=== PATIENT | female | born 1975 | race Caucasian/White ===

== ENCOUNTER 2020-02-27 13:19 | Inpatient (IN) | payer BC ==
--- NOTE | 2020-02-27 15:00 | EDM.PDOC ---
ED HPI GENERAL MEDICAL PROBLEM - General Chief Complaint: General Stated Complaint: FROM CLINIC RAPID HEART RATE Time Seen by Provider: 02/27/20 14:33 Source of Information: Reports: Patient, Provider, RN Notes Reviewed History Limitations: Reports: No Limitations - History of Present Illness INITIAL COMMENTS - FREE TEXT/NARRATIVE: 44-year-old female presents emergency department today complaint of shortness of breath, she initially presented to the urgent care clinic was evaluated there complaints of shortness of breath and any amount of dizziness that she walks she gets winded weiss included chest x-ray EKG electrolytes and CBC the most remarkable aspect is a hemoglobin of 6.4 that is microcytic EKG demonstrates a tachycardia - Related Data Allergies Allergy/AdvReac Type Severity Reaction Status Date / Time No Known Allergies Allergy Verified 02/27/20 13:58 Home Meds: Home Meds Albuterol [Proventil Neb Soln] 2.5 mg .XX DAILY 02/27/20 [History] Fluticasone/Vilanterol [Breo Ellipta 100-25 MCG Inhalation Kit] 1 each IH DAILY 02/27/20 [History] Montelukast [Singulair] 10 mg PO DAILY 02/27/20 [History] PARoxetine HCl [Paxil] 20 mg PO BEDTIME 02/27/20 [History] hydrOXYzine HCL [Atarax] 12.5 - 25 mg PO QID 02/27/20 [History] hydroCHLOROthiazide [Hydrochlorothiazide] 12.5 mg PO DAILY 02/27/20 [History] Past Medical History HEENT History: Reports: Impaired Vision Other HEENT History: wears glasses Respiratory History: Reports: Asthma, Bronchitis, Recurrent Gastrointestinal History: Reports: GI Bleed Genitourinary History: Reports: Renal Calculus [employer] History: Reports: Musculoskeletal History: Reports: Fracture Psychiatric History: Reports: Depression - Infectious Disease History Infectious Disease History: Reports: Chicken Pox, Novel Coronavirus - Past Surgical History HEENT Surgical History: Reports: None Respiratory Surgical History: Reports: None GI Surgical History: Reports: Colonoscopy (2019) Female Surgical History: Reports: Section Musculoskeletal Surgical History: Reports: None Dermatological Surgical History: Reports: None Social & Family History - Tobacco Use Tobacco Use Status *Q: Former Tobacco User Years of Tobacco use: 30 Used Tobacco, but Quit: Yes Month/Year Tobacco Last Used: 2018 - Caffeine Use Caffeine Use: Reports: Coffee - Alcohol Use Days Per Week of Alcohol Use: 7 Number of Drinks Per Day: 2 Total Drinks Per Week: 14 - Recreational Drug Use Recreational Drug Use: No ED ROS GENERAL - Review of Systems Review Of Systems: See Below Constitutional: Reports: No Symptoms HEENT: Reports: No Symptoms Respiratory: Reports: Shortness of Breath Cardiovascular: Reports: Dyspnea on Exertion GI/Abdominal: Reports: No Symptoms : Reports: No Symptoms Musculoskeletal: Reports: No Symptoms ED EXAM, GENERAL - Physical Exam Exam: See Below Exam Limited By: No Limitations General Appearance: Alert, WD/WN, No Apparent Distress Respiratory/Chest: No Respiratory Distress, Lungs Clear, Normal Breath Sounds, No Accessory Muscle Use, Chest Non-Tender Cardiovascular: Regular Rate, Rhythm Course - Vital Signs Last Recorded V/S: Last Vital Signs Temp 97.4 F 02/27/20 16:05 Pulse 121 H 02/27/20 16:05 Resp 15 02/27/20 16:05 BP 168/96 H 02/27/20 16:05 Pulse Ox 100 02/27/20 15:55 - Orders/Labs/Meds Orders: Active Orders 24 hr Category Date Time Status Patient Status Manage Transfer [TRANSFER] Routine ADT 02/27/20 15:22 Active Transfuse Red Blood Cells [COMM] Stat Oth 02/27/20 14:37 Ordered Resuscitation Status Routine Resus Stat 02/27/20 15:24 Ordered Labs: Laboratory Tests 02/27/20 02/27/20 02/27/20 Range/Units 14:50 14:50 14:50 Percent Retic 3.8 H (0.5-1.5) % Iron (50-170) ug/dL TIBC (250-450) ug/dl % Saturation (20-55) % Ferritin 11 (8-388) ng/ml Lactate Dehydrogenase 248 H (82-234) U/L Vitamin B12 285 (193-986) pg/ml Folate 18.7 (8.6-58.9) ng/ml Blood Type O NEGATIVE Gel Antibody Screen Negative Crossmatch See Detail 02/27/20 Range/Units 14:50 Percent Retic (0.5-1.5) % Iron 219 H (50-170) ug/dL TIBC 540 H (250-450) ug/dl % Saturation 41 (20-55) % Ferritin (8-388) ng/ml Lactate Dehydrogenase (82-234) U/L Vitamin B12 (193-986) pg/ml Folate (8.6-58.9) ng/ml Blood Type Gel Antibody Screen Crossmatch Departure - Departure Time of Disposition: 16:13 Disposition: Admitted As Inpatient 67 Condition: Fair Clinical Impression: Microcytic anemia - Discharge Information Referrals: PCP,None [Primary Care Provider] - Forms: ED Department Discharge Sepsis Event Note (ED) - Evaluation Sepsis Screening Result: No Definite Risk - Focused Exam Vital Signs: Vital Signs Temp Temp Pulse Resp BP Pulse Ox 02/27/20 16:05 97.4 F 121 H 15 168/96 H 02/27/20 15:55 98.1 F 124 H 21 H 160/90 H 100 02/27/20 15:51 98.1 F 120 H 15 160/90 H 02/27/20 13:50 133 H 20 129/77 98 - My Orders Last 24 Hours: My Active Orders 02/27/20 14:37 Transfuse Red Blood Cells [COMM] Stat - Assessment/Plan Last 24 Hours: My Active Orders 02/27/20 14:37 Transfuse Red Blood Cells [COMM] Stat Plan: Assessment Acuity = acute Site and laterality = microcytic anemia Etiology = unknown Manifestations = dyspnea Location of injury = Home Lab values = reticulocyte count elevated 3.8 iron elevated to 19 and total iron binding capacity elevated 540 Plan Call discussed case with hospitalist on-call at 1545 kindly agreed to come evaluate patient emergency department for admission blood transfusion has been initiated in the emergency department This note was dictated using [employer] [place] voice recognition software please call with any questions on syntax or grammar.
--- NOTE | 2020-02-27 15:31 | PCM.HP.2 ---
H&P History of Present Illness - General Date of Service: 02/27/20 Admit Problem/Dx: Admission Diagnosis/Problem Admission Diagnosis/Problem Anemia Source of Information: Patient, Provider, RN Notes Reviewed History Limitations: Reports: No Limitations - History of Present Illness Initial Comments - Free Text/Narative: Ms. Cary is a 44-year-old woman who was admitted through the emergency department with weakness and shortness of breath secondary to severe microcytic anemia. Because of her shortness of breath and weakness she had presented to the clinic earlier today. Laboratory studies showed a hemoglobin of 6.4 with microcytic indices. She denies any recent history of overt bleeding, specifically no hematemesis, melena, hematochezia, or hematuria. Last summer she had been experiencing some abdominal pain and did undergo colonoscopy that per her report was unremarkable. She does have a longstanding history of very heavy menstrual bleeding, this has not changed significantly over the past several months. She denies previous history of significant anemia and last available hemoglobin was in the range of 11 with normal indices. - Related Data Allergies/Adverse Reactions: Allergies Allergy/AdvReac Type Severity Reaction Status Date / Time No Known Allergies Allergy Verified 02/27/20 13:58 Home Medications: Home Meds Albuterol [Proventil Neb Soln] 2.5 mg .XX DAILY 02/27/20 [History] Breo Ellipta 200-25 1 inhalation INH DAILY 02/27/20 [History] Montelukast [Singulair] 10 mg PO DAILY 02/27/20 [History] PARoxetine HCl [Paxil] 20 mg PO BEDTIME 02/27/20 [History] hydrOXYzine HCL [Atarax] 12.5 - 25 mg PO QID 02/27/20 [History] hydroCHLOROthiazide [Hydrochlorothiazide] 12.5 mg PO DAILY 02/27/20 [History] Past Medical History HEENT History: Reports: Impaired Vision Other HEENT History: wears glasses Respiratory History: Reports: Asthma, Bronchitis, Recurrent Gastrointestinal History: Reports: GI Bleed Genitourinary History: Reports: Renal Calculus [employer] History: Reports: Musculoskeletal History: Reports: Fracture Psychiatric History: Reports: Depression - Infectious Disease History Infectious Disease History: Reports: Chicken Pox, Novel Coronavirus - Past Surgical History HEENT Surgical History: Reports: None Respiratory Surgical History: Reports: None GI Surgical History: Reports: Colonoscopy (2020) Female Surgical History: Reports: Section Musculoskeletal Surgical History: Reports: None Dermatological Surgical History: Reports: None Social & Family History - Tobacco Use Tobacco Use Status *Q: Former Tobacco User Years of Tobacco use: 30 Used Tobacco, but Quit: Yes Month/Year Tobacco Last Used: 2019 - Caffeine Use Caffeine Use: Reports: Coffee - Alcohol Use Days Per Week of Alcohol Use: 7 Number of Drinks Per Day: 2 Total Drinks Per Week: 14 - Recreational Drug Use Recreational Drug Use: No H&P Review of Systems - Review of Systems: Review Of Systems: See Below General: Reports: Malaise, Weakness, Fatigue. Denies: Fever, Chills HEENT: Reports: No Symptoms Pulmonary: Reports: Shortness of Breath. Denies: Wheezing, Pleuritic Chest Pain, Cough, Sputum, Hemoptysis Cardiovascular: Reports: Dyspnea on Exertion, Lightheadedness. Denies: Chest Pain, Palpitations, Orthopnea, PND, Edema Gastrointestinal: Reports: No Symptoms Genitourinary: Reports: No Symptoms Musculoskeletal: Reports: No Symptoms Skin: Reports: No Symptoms Psychiatric: Reports: No Symptoms Neurological: Reports: No Symptoms Hematologic/Lymphatic: Reports: No Symptoms Immunologic: Reports: No Symptoms Exam - Exam Exam: See Below - Vital Signs Vital Signs: Last Vital Signs Temp Pulse 133 H 02/27/20 13:50 Resp 20 02/27/20 13:50 BP 129/77 02/27/20 13:50 Pulse Ox 98 02/27/20 13:50 Weight: 231 lb - Exam General: Alert, Oriented, Cooperative, Mild Distress HEENT: Conjunctiva Clear, Hearing Intact, Mucosa Moist & [place], Normal Nasal Septum, Posterior Pharynx Clear, Pupils Equal Neck: Supple, Trachea Midline, +2 Carotid Pulse wo Bruit Lungs: Clear to Auscultation, Normal Respiratory Effort Cardiovascular: Regular Rate, Regular Rhythm, Normal S1, Normal S2 GI/Abdominal Exam: Soft, Non-Tender, No Organomegaly, No Distention Back Exam: Normal Inspection, Full Range of Motion Extremities: Non-Tender, No Pedal Edema Skin: Warm, Dry, Intact Neurological: Cranial Nerves Intact, Strength Equal Bilateral, Normal Speech, Normal Tone, Sensation Intact. No: Focal Deficit Neuro Extensive - Mental Status: Alert, Oriented x3, Normal Mood/Affect, Normal Cognition, Memory Intact - Patient Data Lab Results Last 24 hrs: Laboratory Results - last 24 hr 02/27/20 02/27/20 Range/Units 14:50 14:50 Percent Retic 3.8 H (0.5-1.5) % Iron 219 H (50-170) ug/dL TIBC 540 H (250-450) ug/dl % Saturation 41 (20-55) % Sepsis Event Note - Evaluation Sepsis Screening Result: No Definite Risk - Focused Exam Vital Signs: Vital Signs Pulse Resp BP Pulse Ox 02/27/20 13:50 133 H 20 129/77 98 *Q Meaningful Use (ADM) - VTE Risk Assess *Q Each Risk Factor Represents 1 Point: Age 41 - 59 years, Obesity ( BMI > 25 kg/m2) Total Score 1 Point Risk Factors: 2 Each Risk Factor Represents 2 Points: None Total Score 2 Point Risk Factors: 0 Each Risk Factor Represents 3 Points: None Total Score 3 Point Risk Factors: 0 Each Risk Factor Represents 5 Points: None Total Score 5 Point Risk Factors: 0 Venous Thromboembolism Risk Factor Score *Q: 2 Problem List Initiated/Reviewed/Updated: Yes Orders Last 24hrs: Active Orders 24 hr Category Date Time Status Patient Status Manage Transfer [TRANSFER] Routine ADT 02/27/20 15:22 Active FERRITIN [CHEM] Stat Lab 02/27/20 14:50 Received FOLIC ACID [CHEM] Stat Lab 02/27/20 14:50 Received LACTATE DEHYDROGENASE,LDH [CHEM] Stat Lab 02/27/20 14:50 Received RED BLOOD CELLS LP [BBK] Stat Lab 02/27/20 14:50 Received TYPE AND SCREEN [BBK] Stat Lab 02/27/20 14:50 Received VITAMIN B12 [CHEM] Stat Lab 02/27/20 14:50 Received Transfuse Red Blood Cells [COMM] Stat Oth 02/27/20 14:37 Ordered Resuscitation Status Routine Resus Stat 02/27/20 15:24 Ordered Assessment/Plan Comment:: ASSESSMENT AND PLAN ANEMIA-hemoglobin 7 months ago was 11 with no microcytic indices. Now very low at 6.4 with decrease in MCV. She denies any evidence or symptoms of overt bleeding. Reports normal colonoscopy last summer. She does have a history of heavy menstrual flow. Iron studies obtained in the emergency department are normal. No evidence of active bleeding at the present time -Transfuse 1 unit of red blood cells -Recheck hemoglobin later this evening and in a.m. -Will require outpatient colonoscopy and EGD ASTHMA-she has had difficulty with exacerbations over the past few months. Tested positive for Covid at the end of January. -Nebulized albuterol as needed -Continue outpatient medications MAINTENANCE ISSUES -DVT prophylaxis; SCUDs -GI prophylaxis; not indicated -Marie catheter; not indicated -Nutrition; regular diet -Nicotine dependence; not required CODE STATUS-FULL CODE ADMISSION STATUS-patient will be admitted to inpatient status, expect at least a 2 night hospital stay for evaluation and management of problems as outlined above. At the time of this admission I do not reasonably expected evaluation and management of this problem will require more than a 96 hour hospital stay. DISPOSITION-anticipate discharge to home after the hospital stay. - Mortality Measure Prognosis:: Good
[2020-02-27] MEDS ORDERED: Albuterol 0.083% 2.5 MG/3 ML Neb Soln NEB PRN (17:03)
[2020-02-27] MEDS ORDERED: Polyethylene Glycol 3350 Powder 17 GM Packet PO PRN (17:03)
[2020-02-27] MEDS ORDERED: Acetaminophen 325 MG Tab PO PRN (17:03)
[2020-02-27] MEDS ORDERED: Sodium Chloride 0.9% 10 ML Syringe FLUSH PRN (17:03)
[2020-02-27] MEDS ORDERED: Ondansetron 4 MG Tab.DIS PO PRN (17:03)
[2020-02-27] MEDS: hydrOXYzine HCl 25 MG Tab PO SCH ×2 (17:52→21:28)
[2020-02-27] MEDS ORDERED: PARoxetine 20 MG Tab PO SCH (21:00)
[2020-02-27] MEDS ORDERED: Montelukast 10 MG Tab PO SCH (21:00)
[2020-02-27] MEDS: Formoterol/Mometasone 200-5 MCG 8.8 GM Inhaler IH SCH (21:28)
[2020-02-28] MEDS ORDERED: HYDROmorphone 0.5 MG/0.5 ML Syringe IVPUSH PRN (02:35)
[2020-02-28] MEDS: hydrOXYzine HCl 25 MG Tab PO SCH ×2 (05:43→09:50)
[2020-02-28] MEDS ORDERED: Formoterol/Mometasone 200-5 MCG 8.8 GM Inhaler IH SCH (07:00)
[2020-02-28] MEDS: Formoterol/Mometasone 200-5 MCG 8.8 GM Inhaler IH SCH (07:04)
[2020-02-28] MEDS ORDERED: Hydrochlorothiazide 12.5 MG Cap PO SCH (09:00)
[2020-02-28] MEDS ORDERED: Sodium Chloride 0.9% 10 ML SDV FLUSH ONE (10:37)
[2020-02-28] MEDS ORDERED: Iopamidol 755 Mg/ML 100 ML Bottle IV SCH (10:45)
[2020-02-28] MEDS ORDERED: Sodium Chloride 0.9% 100 ML IV SCH (10:45)
--- NOTE | 2020-02-28 12:04 | CRLCT ---
INDICATION: Tachycardia and SOB parotid the rule out pulmonary embolism. TECHNIQUE: Volumetric helical scanning of the thorax was performed during infusion of 80 cc of Isovue 370 contrast material IV, timing optimized for pulmonary arterial opacification. Coronal and sagittal reconstructions were obtained. COMPARISON: Chest x-ray of 02/27/2020. FINDINGS: The images are of acceptable quality and demonstrate uniform vascular enhancement within the pulmonary arteries. No pulmonary arterial filling defect is identified. The heart size is normal. Pulmonary interstitial edema is demonstrated along with small patchy airspace infiltrates which are compatible with alveolar edema. Superimposed COVID-19 pneumonia is also a consideration. Small symmetrical pleural effusions are demonstrated. The pulmonary veins are engorged. No airway abnormality is evident. No mediastinal or hilar lymphadenopathy is demonstrated. Images of the upper abdomen are unremarkable except for at least mild hepatomegaly. IMPRESSION: 1. Negative for pulmonary embolism. 2. CHF with pulmonary interstitial and possible alveolar edema as well as small pleural effusions bilaterally. Superimposed COVID-19 pneumonia is a consideration. 3. At least mild hepatomegaly. Please note that all CT scans at this facility use dose modulation, iterative reconstruction, and/or weight-based dosing when appropriate to reduce radiation dose to as low as reasonably achievable. Dictated by Sage Butler MD @ Feb 28 2020 11:56AM Signed by Dr. Sage Butler @ Feb 28 2020 12:03PM
--- NOTE | 2020-02-28 12:18 | PCM.DCSUM1 ---
Discharge Summary - Hospital Course Brief History: 44-year-old female with history of mild remittent asthma who presented with progressive dyspnea on exertion and weakness. She was admitted for management of anemia with a hemoglobin of less than 7. Diagnosis: Stroke: No - Discharge Data Discharge Date: 02/28/20 Discharge Disposition: Home, Self-Care 01 Condition: Good - Referral to Home Health Primary Care Physician: PCP None - Discharge Diagnosis/Problem(s) (1) Microcytic anemia SNOMED Code(s): 474388311 ICD Code: D50.9 - IRON DEFICIENCY ANEMIA, UNSPECIFIED Status: Acute (2) Dyspnea on exertion SNOMED Code(s): 95600651 ICD Code: R06.00 - DYSPNEA, UNSPECIFIED Status: Acute (3) Pleural effusion SNOMED Code(s): 83381475 ICD Code: J90 - PLEURAL EFFUSION, NOT ELSEWHERE CLASSIFIED Status: Acute - Patient Summary/Data Hospital Course: Beti presented to the emergency room with progressive dyspnea and weakness. Work-up in the emergency room revealed a sinus tachycardia as well as anemia with hemoglobin less than 7. There was no obvious source for blood loss based on history. Iron levels and ferritin were normal. The patient was admitted to the hospital for blood transfusion and additional work-up. She did receive 1 unit of blood with only a slight rise in her hemoglobin. She did receive a second unit of blood with a much better response. Symptomatically she is feeling better. She does remain mildly tachycardic. She did mention some lower extremity edema that has progressed over the last few months as well. With her dyspnea, tachycardia and edema there was concern for either DVT and pulmonary emboli or possibly a congestive heart failure type picture. We did perform a CT pulmonary angiogram which showed small bilateral effusions but no evidence for pulmonary embolism or underlying infection. There was some concern for congestive heart failure based on the CT scan with the effusions and pulmonary edema. The patient is not hypoxic. I do not have echocardiogram available at this time. I am suspicious that she may have developed the anemia either because of occult blood loss or potentially underproduction. The anemia led to a high output cardiomyopathy which resulted in the dyspnea and pleural effusions. Hopefully treating the anemia will help with the dyspnea. She is feeling much better today. She has had a colonoscopy within the last year and this was unremarkable. She was interested in upper endoscopy to see if there is a gastric lesion leading to occult blood loss. She will be in the area for the next 8 months or so so she was interested in at least temporarily establishing care here in town for follow-up. - Patient Instructions Diet: Regular Diet as Tolerated Activity: As Tolerated Driving: May Drive Today Showering/Bathing: May Shower Notify Provider of: Fever, Increased Pain Other/Special Instructions: 1. You were in the hospital for evaluation anemia with normal iron levels. This anemia could be related to chronic occult blood loss versus underproduction. You have received a blood transfusion with a significant improvement in your hemoglobin level. I recommend that you maintain an iron rich diet. You had a colonoscopy fairly recently so I do not believe we need to repeat that at this time. I do recommend that we perform an upper endoscopy (EGD) to see if there is any evidence for bleeding from your stomach or the first part of your small intestine. You should seek medical attention if you have a rapid increase in your shortness of breath or if you develop significant weakness or chest pressure. 2. I recommend that we switch to furosemide (Lasix) to help manage your lower extremity edema. You should take 20 mg once daily as needed for edema. You may take your first dose this afternoon after hospital discharge. 3. The folks that we need to help schedule your follow-up appointment and EGD are not available today because of the holiday and will not be available until Tuesday. Someone from the clinic and someone from the surgery scheduling department will contact you early next week. - Discharge Plan *PRESCRIPTION DRUG MONITORING PROGRAM REVIEWED*: Not Applicable *COPY OF PRESCRIPTION DRUG MONITORING REPORT IN PATIENT MENG: Not Applicable Prescriptions/Med Rec: Furosemide [Lasix] 20 mg PO DAILY PRN #30 tab PRN Reason: Edema PARoxetine [Paxil] 20 mg PO BEDTIME #30 tablet PARoxetine HCl [Paxil] 20 mg PO BEDTIME #30 Home Medications: Home Meds Albuterol [Proventil Neb Soln] 2.5 mg .XX DAILY 02/27/20 [History] Breo Ellipta 200-25 1 inhalation INH DAILY 02/27/20 [History] Montelukast [Singulair] 10 mg PO DAILY 02/27/20 [History] hydrOXYzine HCL [hydrOXYzine] 12.5 - 25 mg PO QID 02/27/20 [History] Furosemide [Lasix] 20 mg PO DAILY PRN #30 tab 02/28/20 [Rx] PARoxetine HCl [Paxil] 20 mg PO BEDTIME #30 02/28/20 [Rx] PARoxetine [Paxil] 20 mg PO BEDTIME #30 tablet 02/28/20 [Rx] Oxygen Therapy Mode: Room Air Patient Handouts: Furosemide tablets, Preventing Iron Deficiency Anemia, Adult Referrals: Elba Ann DO [Physician] - (1-2 weeks - f/u hospital stay for anemia, dyspnea) - Discharge Summary/Plan Comment DC Time >30 min.: Yes (40-counseling about anemia and coordinating follow-up) - Patient Data Vitals - Most Recent: Last Vital Signs Temp 36.6 C 02/28/20 10:28 Pulse 127 H 02/28/20 10:28 Resp 18 02/28/20 10:28 BP 124/75 02/28/20 10:28 Pulse Ox 99 02/28/20 10:28 Weight - Most Recent: 104.508 kg I&O - Last 24 hours: Intake & Output 02/27/20 02/28/20 02/28/20 22:59 06:59 14:59 Intake Total 304 2292 Balance 304 2292 Lab Results - Last 24 hrs: Laboratory Results - last 24 hr 02/27/20 02/27/20 02/27/20 Range/Units 14:50 14:50 14:50 WBC (4.5-11.0) K/uL RBC (3.30-5.50) M/uL Hgb (12.0-15.0) g/dL Hct (36.0-48.0) % MCV (80-98) fL MCH (27-31) pg MCHC (32-36) % Plt Count (150-400) K/uL Neut % (Auto) (36-66) % Lymph % (Auto) (24-44) % [place]ding % (Auto) (2-6) % Eos % (Auto) (2-4) % Baso % (Auto) (0-1) % Percent Retic 3.8 H (0.5-1.5) % Sodium (140-148) mmol/L Potassium (3.6-5.2) mmol/L Chloride (100-108) mmol/L Carbon Dioxide (21-32) mmol/L Anion Gap (5.0-14.0) mmol/L BUN (7-18) mg/dL Creatinine (0.6-1.0) mg/dL Est Cr Clr Drug Dosing mL/min Estimated GFR (MDRD) (>60) Glucose (74-106) mg/dL Calcium (8.5-10.1) mg/dL Iron (50-170) ug/dL TIBC (250-450) ug/dl % Saturation (20-55) % Ferritin 11 (8-388) ng/ml Total Bilirubin (0.2-1.0) mg/dL AST (15-37) U/L ALT (12-78) U/L Alkaline Phosphatase (46-116) U/L Lactate Dehydrogenase 248 H (82-234) U/L Total Protein (6.4-8.2) g/dL Albumin (3.4-5.0) g/dL Globulin (2.3-3.5) g/dL Albumin/Globulin Ratio (1.2-2.2) Vitamin B12 285 (193-986) pg/ml Folate 18.7 (8.6-58.9) ng/ml TSH, Ultra Sensitive (0.358-3.740) uIU/mL Blood Type O NEGATIVE Gel Antibody Screen Negative Crossmatch See Detail 02/27/20 02/27/20 02/28/20 Range/Units 14:50 21:09 04:49 WBC 6.2 (4.5-11.0) K/uL RBC 4.02 (3.30-5.50) M/uL Hgb 7.4 L 10.0 L D (12.0-15.0) g/dL Hct 32.0 L (36.0-48.0) % MCV 80 (80-98) fL MCH 25 L (27-31) pg MCHC 31 L (32-36) % Plt Count 260 (150-400) K/uL Neut % (Auto) 74 H (36-66) % Lymph % (Auto) 18 L (24-44) % Spalding % (Auto) 7 H (2-6) % Eos % (Auto) 1 L (2-4) % Baso % (Auto) 1 (0-1) % Percent Retic (0.5-1.5) % Sodium (140-148) mmol/L Potassium (3.6-5.2) mmol/L Chloride (100-108) mmol/L Carbon Dioxide (21-32) mmol/L Anion Gap (5.0-14.0) mmol/L BUN (7-18) mg/dL Creatinine (0.6-1.0) mg/dL Est Cr Clr Drug Dosing mL/min Estimated GFR (MDRD) (>60) Glucose (74-106) mg/dL Calcium (8.5-10.1) mg/dL Iron 219 H (50-170) ug/dL TIBC 540 H (250-450) ug/dl % Saturation 41 (20-55) % Ferritin (8-388) ng/ml Total Bilirubin (0.2-1.0) mg/dL AST (15-37) U/L ALT (12-78) U/L Alkaline Phosphatase (46-116) U/L Lactate Dehydrogenase (82-234) U/L Total Protein (6.4-8.2) g/dL Albumin (3.4-5.0) g/dL Globulin (2.3-3.5) g/dL Albumin/Globulin Ratio (1.2-2.2) Vitamin B12 (193-986) pg/ml Folate (8.6-58.9) ng/ml TSH, Ultra Sensitive (0.358-3.740) uIU/mL Blood Type Gel Antibody Screen Crossmatch 02/28/20 02/28/20 Range/Units 04:49 07:43 WBC (4.5-11.0) K/uL RBC (3.30-5.50) M/uL Hgb (12.0-15.0) g/dL Hct (36.0-48.0) % MCV (80-98) fL MCH (27-31) pg MCHC (32-36) % Plt Count (150-400) K/uL Neut % (Auto) (36-66) % Lymph % (Auto) (24-44) % Spalding % (Auto) (2-6) % Eos % (Auto) (2-4) % Baso % (Auto) (0-1) % Percent Retic (0.5-1.5) % Sodium 136 L (140-148) mmol/L Potassium 4.1 (3.6-5.2) mmol/L Chloride 103 (100-108) mmol/L Carbon Dioxide 22 (21-32) mmol/L Anion Gap 15.1 H (5.0-14.0) mmol/L BUN 12 (7-18) mg/dL Creatinine 1.0 (0.6-1.0) mg/dL Est Cr Clr Drug Dosing 60.00 mL/min Estimated GFR (MDRD) > 60 (>60) Glucose 110 H (74-106) mg/dL Calcium 8.1 L (8.5-10.1) mg/dL Iron (50-170) ug/dL TIBC (250-450) ug/dl % Saturation (20-55) % Ferritin (8-388) ng/ml Total Bilirubin 0.4 (0.2-1.0) mg/dL AST 27 (15-37) U/L ALT 32 (12-78) U/L Alkaline Phosphatase 84 (46-116) U/L Lactate Dehydrogenase (82-234) U/L Total Protein 6.4 (6.4-8.2) g/dL Albumin 3.1 L (3.4-5.0) g/dL Globulin 3.3 (2.3-3.5) g/dL Albumin/Globulin Ratio 0.9 L (1.2-2.2) Vitamin B12 (193-986) pg/ml Folate (8.6-58.9) ng/ml TSH, Ultra Sensitive 1.751 (0.358-3.740) uIU/mL Blood Type Gel Antibody Screen Crossmatch Med Orders - Current: Current Medications Acetaminophen (Tylenol) 650 mg PO Q4H PRN PRN Reason: Pain (Mild 1-3)/fever Albuterol (Proventil Neb Soln) 2.5 mg NEB Q4H PRN PRN Reason: Shortness Of Breath/wheezing Last Admin: 02/28/20 02:06 Dose: 2.5 mg Documented by: Hydrochlorothiazide (Hydrochlorothiazide) 12.5 mg PO DAILY [facility] Last Admin: 02/28/20 08:45 Dose: 12.5 mg Documented by: Hydromorphone HCl (Dilaudid) 0.5 mg IVPUSH Q2H PRN PRN Reason: Pain Last Admin: 02/28/20 02:45 Dose: 0.5 mg Documented by: Hydroxyzine HCl (Atarax) 12.5 mg PO QID [facility] Last Admin: 02/28/20 09:50 Dose: 12.5 mg Documented by: Mometasone Furoate/Formoterol Fumar (Dulera 200-5 Mcg) 2 puff IH BIDRT [facility] Last Admin: 02/28/20 07:04 Dose: 2 puff Documented by: Montelukast Sodium (Singulair) 10 mg PO BEDTIME [facility] Last Admin: 02/27/20 20:13 Dose: 10 mg Documented by: Ondansetron HCl (Zofran Odt) 4 mg PO Q6H PRN PRN Reason: Nausea able to take PO Paroxetine HCl (Paxil) 20 mg PO BEDTIME [facility] Last Admin: 02/27/20 20:13 Dose: 20 mg Documented by: Polyethylene Glycol (Miralax) 17 gm PO DAILY PRN PRN Reason: Constipation Sodium Chloride (Saline Flush) 10 ml FLUSH ASDIRECTED PRN PRN Reason: Keep Vein Open Last Admin: 02/28/20 10:53 Dose: 10 ml Documented by: Discontinued Medications Sodium Chloride (Normal Saline) 100 mls @ 3 mls/sec IV ASDIRECTED [facility] Stop: 02/28/20 10:46 Last Admin: 02/28/20 10:53 Dose: 3 mls/sec Documented by: Iopamidol (Isovue-370 (76%)) 80 ml IV . DIRECTED [facility] Stop: 02/28/20 10:46 Last Admin: 02/28/20 10:53 Dose: 80 ml Documented by: Mometasone Furoate/Formoterol Fumar (Dulera 200-5 Mcg) 2 puff IH BIDRT [facility] Sodium Chloride (Normal Saline) 10 ml FLUSH ONETIME ONE Stop: 02/28/20 10:38
== END 2020-02-28 12:57 | disposition home or self-care (01) | DRG 663 ==
LOC: JP.ED 13:19 → JP.MS 15:22
PROVIDERS: ADMIT Hospitalist; ATTEND Hospitalist
PROC: 30233N1 Transfusion of Nonautologous Red Blood Cells into Peripheral Vein, Percutaneous Approach (ICD-10-PCS; principal; 2020-02-27)
DX: D50.9 Iron deficiency anemia, unspecified (principal); J90 Pleural effusion, not elsewhere classified; H54.7 Unspecified visual loss; J45.20 Mild intermittent asthma, uncomplicated; F32.9 Major depressive disorder, single episode, unspecified; R53.1 Weakness; I50.9 Heart failure, unspecified; Z79.899 Other long term (current) drug therapy; Z87.442 Personal history of urinary calculi; Z87.891 Personal history of nicotine dependence; Z09 Encounter for follow-up examination after completed treatment for conditions other than malignant neoplasm; Z86.19 Personal history of other infectious and parasitic diseases
CPT/HCPCS: 36415; 36430; 71275; 80053; 82607; 82728; 82746; 83550; 83615; 84443; 85018; 85025; 85045; 86850; 86900; 86901; 86920; 86922; 93005; 94640; 96374; 99285-25; A9270-GY; J1170; P9016; Q9967

== ENCOUNTER 2020-03-06 06:09 | Day surgery (SDC) | payer BC ==
[2020-03-06] MEDS ORDERED: fentaNYL 100 MCG/2 ML SDV ONE (07:13)
[2020-03-06] MEDS ORDERED: Midazolam 1 MG/ML 2 ML SDV ONE (07:14)
[2020-03-06] MEDS ORDERED: Propofol 200 MG/20 ML SDV ONE (07:14)
[2020-03-06] MEDS ORDERED: Dextrose 5%-Lactated Ringers 1,000 ML IV SCH (07:30)
--- NOTE | 2020-03-23 10:29 | OR ---
DATE OF PROCEDURE: 03/06/2020 SURGEON: Percy Polk MD PREOPERATIVE DIAGNOSIS: Anemia. POSTOPERATIVE DIAGNOSES: Upper gastrointestinal endoscopy showin. Moderate-sized hiatal hernia with mildly active gastroesophageal reflux disease. 2. Very mild patchy antral gastritis. 3. No upper gastrointestinal bleeding source identified. OPERATIVE PROCEDURES: Esophagogastroduodenoscopy with: 1. Biopsies of esophagogastric junction for histologic evaluation. 2. Biopsies of antrum for CLOtest. ANESTHESIA: IV sedation. INDICATIONS FOR PROCEDURE: A 44-year-old female presenting with some recently identified anemia and is scheduled for an upper GI endoscopy to evaluate possible sources of bleeding in that area. The patient is presently on omeprazole 20 mg a day. She does have a history of some gastritis in the past, and recently had a COVID infection. Plan is to proceed with upper GI endoscopy with biopsies as indicated. Potential risks including bleeding and perforation were discussed, and the patient wishes to proceed. DETAILS OF PROCEDURE: The patient was taken to the operating room, placed in a left lateral decubitus position. IV sedation was administered, after which the upper GI endoscope was passed orally through the length of the esophagus into the stomach with retroflexion view of the fundus, thereafter through the pyloric channel to the junction of the third and fourth portions of the duodenum. Hypopharynx, larynx, upper esophageal sphincter, and esophageal body were unremarkable. At the EG junction, the patient had a roughly 2 to 3 cm hiatal hernia. There was some mildly active gastroesophageal reflux disease present there with the mucosa being somewhat friable and edematous. There was minimal upward extension of the mucosal line and some stricturing or plaquing suggestive of neoplasia. Within the stomach, there were some very mild patchy antral gastritis. The pyloric channel and visualized portions of the duodenum were unremarkable. Overall, there were no identifiable lesions here that would explain some ongoing recent bleeding. Biopsies were then obtained from the antrum and sent for CLOtest for H pylori. Multiple biopsies were then obtained from esophagogastric junction and sent for histologic evaluation. Minimal bleeding from the biopsy sites was seen and the procedure was then concluded. At this point, the patient's upper GI situation is appearing to be reasonably well controlled with the omeprazole 20 mg a day and we will continue that dose. She will be following up with Dr. Ann in [facility] with a CBC, ferritin, B12, and folate levels at that appointment. Percy Polk MD /[id number]
== END 2020-03-06 09:46 | disposition home or self-care (01) ==
LOC: JP.SDS 06:09
PROVIDERS: ATTEND Surgery
DX: K31.89 Other diseases of stomach and duodenum (principal); K22.70 Barrett's esophagus without dysplasia; D64.9 Anemia, unspecified; K44.9 Diaphragmatic hernia without obstruction or gangrene; K21.9 Gastro-esophageal reflux disease without esophagitis; K29.50 Unspecified chronic gastritis without bleeding; J45.909 Unspecified asthma, uncomplicated; E66.9 Obesity, unspecified; Z68.41 Body mass index [BMI] 40.0-44.9, adult
CPT/HCPCS: 43239; 87081; 88305; J2250; J2704; J3010; J7121

== ENCOUNTER 2021-09-03 10:20 | Emergency (ER) | payer BC | END 2021-09-03 12:43 | disposition home or self-care (01) | LOC: JP.ED 10:20 | DX: R55 Syncope and collapse (principal); D50.8 Other iron deficiency anemias; E87.6 Hypokalemia; K21.9 Gastro-esophageal reflux disease without esophagitis; Z79.899 Other long term (current) drug therapy; Z86.16 Personal history of COVID-19 | CPT/HCPCS: 36415; 80048; 85025; 99284 ==